=== PATIENT | male | born 1970 | race Hispanic/Latino ===

== ENCOUNTER 2017-03-09 06:22 | Day surgery (SDC) | payer OTHER ==
[2017-03-05 12:26] VITALS: BMI 34.7
[2017-03-09] MEDS ORDERED: Lidocaine 2% Inj (20ml) ONE (06:42)
[2017-03-09] MEDS ORDERED: Phenylephrine 10 mg/ml Inj ONE (06:43)
[2017-03-09] MEDS ORDERED: Midazolam 2 MG/2 ML VIAL ONE ×2 (06:43→08:14)
[2017-03-09] MEDS ORDERED: Nitroglycerin 50mg in D5W 50 MG/250 ML BOTTLE IV ONE (06:44)
[2017-03-09] MEDS ORDERED: Iodixanol 320 MG/ML 100 ML BOTTLE IV ONE (06:44)
[2017-03-09] MEDS ORDERED: Iodixanol 320 MG/ML 200 ML BOTTLE IV ONE (06:44)
[2017-03-09] MEDS ORDERED: Iohexol 350mgl/ml 50 ML ONE (06:44)
[2017-03-09 06:55] LABS: BASO # 0.02 K/mm3 (0.0-2.0); BASO % 0.3 % (0.0-3.0); EOS # 0.1 (0.0-0.7); EOS % 1.7 % (1.5-5.0); GRAN # 4.29 (1.4-6.5); GRAN % 60.1 % (50.0-68.0); HEMATOCRIT 39.9 % (42.0-52.0); LYMPH % 28.1 % (22.0-35.0); MEAN CORPUSCULAR HEMOGLOBIN 25.9 pg (25.0-35.0); MEAN CORPUSCULAR HGB CONC 33.6 g/dl (31.0-37.0); MEAN PLATELET VOLUME 9.1 fl (7.0-11.0); MONO # 0.7 (0.1-0.6); MONO % 9.8 % (1.0-6.0); RED CELL DISTRIBUTION WIDTH 12.8 % (11.5-14.5); WHITE BLOOD COUNT 7.1 10^3/ul (4.5-11.0)
[2017-03-09 07:07] LABS: BLOOD UREA NITROGEN 13 mg/dL (7-21); CALCIUM 9.3 mg/dL (8.4-10.5); CARBON DIOXIDE 30 mmol/L (21-33); CHLORIDE 104 mmol/L (98-107); CHOLESTEROL 200 mg/dL (130-200); GFR AFRICAN-AMERICAN > 60; GLUCOSE,RANDOM 114 mg/dL (70-110); INR 1.04 (0.93-1.08); PARTIAL THROMBOPLASTIN TIME 33.3 Seconds (25.1-36.5); POTASSIUM 4.9 mmol/L (3.6-5.0); SODIUM 142 mmol/L (132-148)
--- NOTE | 2017-03-09 08:28 | HP ---
REASON FOR ADMISSION: Left heart catheterization, possible angioplasty, chest pain. BRIEF CLINICAL HISTORY: This is a 46-year-old male with past medical history of hypertension, dyspnea on exertion, chest pain. Had a cardiac workup in June 2015 which was negative. Complaining of new onset of chest pain and feels dyspnea on exertion. The patient is scheduled for elective cardiac cath possible angioplasty because of unstable angina. PAST MEDICAL HISTORY: Hypertension. CURRENT MEDICATION: Metoprolol succinate 100 mg once a day, aspirin 81 mg daily, and losartan 25 mg daily. CARDIAC WORKUP: The patient had a stress test in June 2015, walked on the treadmill 6 minutes and 35 seconds total,at that time is negative. Echo at that time showed ejection fraction of 55% and trace TR dated 06/08/2015. SOCIAL HISTORY: Denies any smoking. Denies any history of alcohol abuse. REVIEW OF SYSTEMS: As per HPI. PHYSICAL EXAMINATION: VITAL SIGNS: As follows: Height of the patient is 6 feet 2 inches, weight of the patient is 270 pounds, body mass index of 37.4 kg per meter square. Heart rate is 64 and blood pressure 110/80. HEENT: PERRLA. Extraocular muscles are intact. NECK: Supple. No carotid bruits or thyromegaly. CHEST: Clear to auscultation. HEART: S1 and S2 regular. ABDOMEN: Soft. EXTREMITIES: Clubbing and cyanosis negative.. IMPRESSION: Unstable angina, new onset chest pain, dyspnea on exertion, supraventricular tachycardia, hypertension, and obesity. RECOMMENDATION: Risks, benefits, and alternatives were discussed with the patient. The patient agreed to proceed with cardiac catheterization. We will review the blood workup when it is available. We will load with aspirin and Plavix. We will follow with you. Thank you for providing us the opportunity in taking care of the patient, Tra Pope. Ruiz Olmos MD [facility]
[2017-03-09] MEDS ORDERED: Bacitracin 500 Units/gm Oint Foilpak UD TOP ONE (08:36)
[2017-03-09] MEDS ORDERED: Sodium Chloride 0.9% 1,000 ML IV SCH (08:45)
[2017-03-09 08:59] VITALS: TEMP 98.6
[2017-03-09] MEDS ORDERED: Bacitracin 500 Units/gm Oint Foilpak UD ONE (11:17)
[2017-03-09 11:47] VITALS: RESP 20
[2017-03-09 11:48] VITALS: BP 146/92; PULSE 66; O2SAT 97
--- NOTE | 2017-03-09 12:44 | CARD ---
APPROVED REPORT EKG Measurement Heart [id number] <Conclusion> Normal sinus rhythm Normal ECG
--- NOTE | 2017-03-09 16:34 | CARD ---
APPROVED REPORT Procedure(s) performed: Left Heart Catheterization HISTORY The patient is a 47 year-old male with a history of : chronic lung disease, tobacco history() : The patient is a current smoker , hypertension , Recurrent chest pain, [place] and Multiple office Visits with chest pain, had stress test year and a hailf ago was normal.. INDICATION The indication(s) include : unstable angina , chest pain, dyspnea. CASE TECHNIQUE The patient was brought electively to the Cardiac Catheterization Laboratory in a fasting state and was prepped and draped in a sterile manner. The left wrist was infiltrated with 2% Lidocaine subcutaneous anesthesia. A 6FR GLIDESHEATH ACCESS KIT sheath was inserted into the left radial artery without difficulty. Coronary angiography was performed using coronary diagnostic catheters. The left coronary system was accessed and visualized with a Diagnostic ,5 Fr JL 4 catheter. The right coronary system was accessed and visualized with a Diagnostic ,5 Fr JR 4 catheter. The left ventricle was accessed and visualized with a 5 Fr Pigtail 145 (Angled) catheter. Left ventricular/Aortic Valve gradient assessed on pullback. Left ventriculogram was performed in [place] projection. Closure device was deployed with a Fr TR Band (Large) without any complications. The patient tolerated the procedure well and there were no complications associated with the procedure. Vessel Analysis The patient's coronary anatomy is co-dominant. The left main coronary artery is a large size vessel without stenosis. The left main trifurcates to the left anterior descending, circumflex, and ramus. The left anterior descending artery is a medium size vessel with intimal irregularities and without significant stenosis. The first diagonal branch is a medium size vessel without significant stenosis. The circumflex artery is a large size vessel with intimal irregularities and without significant stenosis. The first obtuse marginal branch is a large size vessel with intimal irregularities and without significant stenosis. The second obtuse marginal branch is a medium size vessel with intimal irregularities. The left posterior descending artery is a small size vessel with diffuse calcification noted throughout this vessel and without significant stenosis. There is a 55% stenosis in the proximal segment. Diffusely diseased ,non flow limiting The right coronary artery is a large size vessel without significant stenosis. The right posterior descending artery is a medium size vessel without significant stenosis. The right posterolateral branch is a small size vessel with intimal irregularities. Left Ventricle The left ventricle is normal in size with normal contractility. There was no cardiomyopathy. The left ventricular ejection fraction is estimated to be 60-65%. The left ventricular end diastolic pressure is 14 mmHg. There was no gradient across the aortic valve upon pullback. Conclusion Non Obstructive CAD limited to Co Dominant small L PDA 55% diffusely diseased, but non Flow limiting. Preserved LV Fx. EF-60-65%, EDP-14 mmof Hg. Recommendations Smoking Cessation Aggressive Medical TherapyCardiac Risk Reduction Program Weight Loss Reduction Program Work up for Non cardiac chest pain. CC; Dr. Francisco Cochran MD.
== END 2017-03-09 12:50 | disposition home or self-care (01) ==
LOC: CATH 06:22
PROVIDERS: ATTEND Internal Medicine Cardiovascular Disease
DX: I25.110 Atherosclerotic heart disease of native coronary artery with unstable angina pectoris (principal); I10 Essential (primary) hypertension; E66.9 Obesity, unspecified; I47.1 Supraventricular tachycardia; F17.210 Nicotine dependence, cigarettes, uncomplicated
CPT/HCPCS: 36415; 80048; 80061; 85025; 85610; 85730; 86850; 86900; 93005; 93458; 99152; 99153; C1769; C1887 ×2; J1644 ×2; J2250; J3010; J7030; J7040; Q9967 ×2